=== PATIENT | female | born 1995 | race Caucasian/White ===

== ENCOUNTER → 2016-05-06 | Outpatient (CLI) | payer OTHER ==
[~2016-05-06] VITALS: Ht 175.3 cm; Wt 64.9 kg
== END ==
LOC: OPSV 11:24
DX: D50.9 Iron deficiency anemia, unspecified (principal); K90.9 Intestinal malabsorption, unspecified
CPT/HCPCS: 96365; J7050

== ENCOUNTER → 2016-05-13 | Outpatient (CLI) | payer OTHER ==
[~2016-05-13] VITALS: Ht 175.3 cm; Wt 64.9 kg
== END ==
LOC: OPSV 11:02
DX: D50.9 Iron deficiency anemia, unspecified (principal); K90.9 Intestinal malabsorption, unspecified
CPT/HCPCS: 96365; J7050

== ENCOUNTER 2016-08-14 17:32 | Emergency (ER) | payer OTHER | END 2016-08-14 21:00 | disposition left against medical advice (07) | LOC: ER1 17:32 | DX: Z53.21 Procedure and treatment not carried out due to patient leaving prior to being seen by health care provider (principal) ==

== ENCOUNTER → 2020-03-13 | Outpatient (CLI) | payer OTHER ==
[~2020-03-13] MED LIST: HUMULIN N100 UNIT/1 SC; HUMULIN R100 UNIT/1 SC; IBUPROFEN600 MG PO; LORTAB 5-325 M1 EACH PO; MACROBID 100 M100 MG PO; TORADOL 10 MG T10 MG PO
[2020-03-13 16:54] LABS: RED BLOOD COUNT 4.85 M/UL (4.00-5.10); WHITE BLOOD COUNT 7.9 K/UL (4.5-11.0)
[2020-03-13 17:12] LABS: BUN/CREATININE RATIO 12 (0-10)
== END ==
LOC: LAB 16:33
PROVIDERS: Emergency Medicine
DX: R10.816 Epigastric abdominal tenderness (principal); K29.00 Acute gastritis without bleeding; R10.31 Right lower quadrant pain; R10.811 Right upper quadrant abdominal tenderness
CPT/HCPCS: 36415; 80053; 83690; 85025

== ENCOUNTER 2020-05-06 20:19 | Emergency (ER) | payer OTHER | END 2020-05-06 22:06 | disposition home or self-care (01) | LOC: ER1 20:19 | DX: S46.011A Strain of muscle(s) and tendon(s) of the rotator cuff of right shoulder, initial encounter (principal); S13.4XXA Sprain of ligaments of cervical spine, initial encounter; S60.222A Contusion of left hand, initial encounter; V49.40XA Driver injured in collision with unspecified motor vehicles in traffic accident, initial encounter; Y92.410 Unspecified street and highway as the place of occurrence of the external cause | CPT/HCPCS: 71045; 73030; 73060; 99284 ==

== ENCOUNTER 2020-07-28 15:17 | Emergency (ER) | payer OTHER ==
[2020-07-28] MEDS ORDERED: IBUPROFEN600 MG PO (16:31)
== END 2020-07-28 16:46 | disposition home or self-care (01) ==
LOC: ER1 15:17
DX: S93.402A Sprain of unspecified ligament of left ankle, initial encounter (principal); S93.602A Unspecified sprain of left foot, initial encounter; X58.XXXA Exposure to other specified factors, initial encounter
CPT/HCPCS: 73610; 73630; 99283